=== PATIENT | female | born 1945 | race Caucasian/White ===

== ENCOUNTER 2018-06-19 18:26 | Emergency (ER) | payer OTHER ==
[~2018-06-19] VITALS: Ht 157.5 cm; Wt 81.6 kg
[2018-06-19] MEDS ORDERED: DYRENIUM50 MG (19:21)
[2018-06-19] MEDS ORDERED: GLIMEPIRIDE4 MG (19:21)
[2018-06-19] MEDS ORDERED: LYRICA50 MG (19:22)
== END 2018-06-19 23:40 | disposition home or self-care (01) ==
LOC: ER 18:26
DX: E11.65 Type 2 diabetes mellitus with hyperglycemia (principal); I16.0 Hypertensive urgency; I10 Essential (primary) hypertension; M54.31 Sciatica, right side